=== PATIENT | female | born 1970 | race Caucasian/White ===

== ENCOUNTER → 2016-06-29 | Outpatient (CLI) | payer OTHER ==
[~2016-06-29] MED LIST: MTR600X PO; MULT-506 PO; OXYC-57 PO
--- NOTE | 2016-06-29 14:07 | MAMMOGRAPHY REPORT ---
BILATERAL DIGITAL DIAGNOSTIC MAMMOGRAM TOMOSYNTHESIS WITH CAD AND TARGETED BILATERAL ULTRASOUND: 06/06 CLINICAL HISTORY: The patient reports a palpable lump in the left breast which has had for many year s and is unchanged. She also had an episode of skin erythema and pain around her right nipple appro ximately 2 weeks ago; she was placed on antibiotics and the symptoms have resolved. She reports eitan t her clinician felt possible lumps in the region of the redness and pain at the time of her symptom s. TECHNIQUE: Breast tomosynthesis in addition to standard 2D mammography was performed. Current study was also evaluated with a Computer Aided Detection (CAD) system. Bilateral CC and MLO 2-D and vinay synthesis images were obtained. COMPARISON: Comparison is made to exam dated: 08/12/2014 mammogram - [facility]. BREAST COMPOSITION: The tissue of both breasts is heterogeneously dense, which may obscure small ma sses. FINDINGS: A triangle marker weller the site of the palpable lump in the left upper outer quadrant. T here are no suspicious masses, calcifications, or areas of architectural distortion seen mammographi annabelle. There has been no significant interval change compared to prior exams. Two morphologically n ormal intramammary lymph nodes in the right upper outer quadrant are stable. Targeted ultrasound was performed of the area of the palpable lump pointed out by the patient,in the left breast at approximately 2:00, 6 cm from the nipple. Sonographically normal tissue is seen in this region, without evidence of a mass or other suspicious sonographic abnormality. Targeted ultrasound was also performed of the right subareolar and periareolar breast, in the region of prior skin erythema and pain. No suspicious masses or other suspicious sonographic abnormalitie s are evident. A few incidentally noted small oval circumscribed anechoic masses are noted, consist ent with simple cysts, including a 4 mm cyst in the right superior subareolar breast and a 4 mm cyst in the right inferior subareolar breast. IMPRESSION: ACR BI-RADS CATEGORY 2: BENIGN, TARGETED ULTRASOUND ACR BI-RADS CATEGORY 2: BENIGN No suspicious mammographic or sonographic abnormality at the site of the unchanged palpable left indra ast lump and in the right subareolar/periareolar region at the site of prior erythema and pain which has currently resolved. There is no mammographic or targeted sonographic evidence of malignancy. Recommend clinical follow-up for bilateral breast symptoms; the patient was advised to return to her doctor if the erythema/pain returns. Also recommend routine bilateral screening mammograms in one year. The patient has been verbally notified of the results. Approximately 10% of breast cancers are not detected with mammography. A negative mammographic repor t should not delay biopsy if a clinically suggestive mass is present. Lanette Marvin M.D. ah/:06/29/2016 09:46:15 Student Outreach Coordinator: Bailey GARCIA(Hever)(M), [facility] letter sent: Normal 1/2 BI-RADS Code: ACR BI-RADS Category 2: Benign Ultrasound BI-RADS: ACR BI-RADS Category 2: Benign
== END | disposition home or self-care (01) ==
LOC: C.MAMM 09:03
PROVIDERS: ATTEND Obstetrics & Gynecology
DX: N63 Unspecified lump in breast (principal); N64.89 Other specified disorders of breast

== ENCOUNTER 2020-03-26 09:01 | Inpatient (IN) ==
--- NOTE | 2020-03-26 09:28 | Emergency Department Note ---
History of Present Illness General Chief complaint: GI Assessment Stated complaint: BLOOD IN STOOL Time Seen by Provider: 03/26/20 09:08 History of Present Illness This is a 49-year-old female that presents to the emergency department via private vehicle with complaints "blood in stool". The patient notes 2 days ago she began with purpleish/dark red blood per rectum. She then notes that she was seen yesterday at [facility] and was diagnosed with what she believes to be diverticulitis. The patient denies any abdominal pain. No fevers or chills. She notes that today there is a worsening of quantity of bright red blood per rectum and was concerned now noting that she feels dizzy and nauseate d. She denies any anticoagulant use, aspirin or NSAID use. No trauma or injury. She notes a history of hemorrhoids which were removed surgically previously but this does not feel any thing like that. She believes that this is coming from internally. No vaginal bleeding. She denies any hemoptysis. She did place a scopolamine patch behind the left ear earlier today to help with her dizziness. No history of GI bleeding. She notes that she has never had a colonoscopy before and is scheduled for one in about a month from now. Home Medications Medication Instructions Recorded Confirmed Type Lactobacillus reuteri [Probiotica] 1 cell PO DAILY 03/26/20 03/26/20 History docusate sodium [Stool Softener] 100 mg PO DAILY 03/26/20 03/26/20 History meloxicam 15 mg PO DAILY 03/26/20 03/26/20 History metformin 1,000 mg PO BID 03/26/20 03/26/20 History Allergies Allergy/AdvReac Type Severity Reaction Status Date / Time meperidine Allergy Mild A PAIN MED Verified 03/26/20 10:48 STARTS WITH A "D", NOT DEMEROL OR DARVOCET--KNEE hydromorphone Allergy Unknown A PAIN MED Verified 03/26/20 10:48 THAT STARTS WITH "D", NOT DEMEROL OR DARVOCET DETERGENTS Allergy Unknown RASH TO Uncoded 03/26/20 10:48 IVORY SOAP WOOL Allergy Unknown RASH Uncoded 03/26/20 10:48 Past Med/Surg History Medical History Abnormal uterine bleeding Abnormal uterine bleeding Anemia (06/13/13) Menometrorrhagia (06/13/13) Ovarian cyst (06/13/13) Pelvic mass Pelvic mass in female Strep pharyngitis Strep pharyngitis Type 2 diabetes mellitus Surgical History History of cervical spinal surgery History of hemorrhoidectomy Hx of cholecystectomy Family History (Updated 03/26/20 @ 12:40 by Jose Steele PA-C) Mother Rheumatoid arthritis Social History Smoking Status: Smoker, status unknown Cigarettes Per Day: 1 Pack every 2-3 days; Smoking End Date: 2 days ago; Second Hand Exposure: Yes; Do You Dip or Chew Tobacco: No; Tobacco Cessation Education Requested by Patient: No Hx Alcohol Use: No Hx Substance Use: No Preferred Language: Vietnamese Communication Ability: Effective Watch Dial Maker Required: No Beliefs That Will Affect Care: None Current Living Situation: Spouse and Other Current Living Situation Comment: 2 daughters Other Information That Helps Us Care for You: No Feels Safe at Home: Yes Safety Concerns: Feels Safe At This Time Assistive Devices: Brace/Splint/Immobilizer, Denture - Upper and Glasses Assistive Devices Comment: brace for ankle, not here. uses cane "occasionally" Review of Systems A total of 10 systems reviewed and were otherwise negative Physical Exam Vital Signs Vital Signs - 24 hr 03/26/20 09:04 03/26/20 11:56 03/26/20 13:45 Temperature 36.3 C L Temperature Source Temporal Artery Scan Pulse Rate 99 H Pulse Rate [Left] 89 92 H Pulse Rhythm [Left] Regular Regular Pulse Strength [Left] Normal Normal Respiratory Rate 22 18 18 Respiratory Effort / Characteristics Non-Labored Non-Labored Spontaneous Non-Labored Spontaneous Respiratory Depth Normal Normal Normal Respiratory Pattern Regular Regular Blood Pressure 108/73 Blood Pressure [Left Arm] 111/65 97/75 L Blood Pressure Mean 84 Blood Pressure Mean [Left Arm] 80 82 Blood Pressure Position Sitting Blood Pressure Position [Left Arm] Lying Lying Pulse Oximetry 100 96 98 Oxygen Delivery Method Room Air Room Air Room Air Sepsis Recent Fever Within 48 Hours No Sepsis New/Unexplained Change in Mental Status No Sepsis Action Taken by Nursing No Action Required VITAL SIGNS - Vital signs and nursing notes were reviewed. Stable and afebrile. GENERAL -49-year-old female appearing her stated age who is in no acute distress. Communicates well with provider and answers questions appropriately. SKIN - Without rashes. Perhaps a bit pale in appearance. Scopolamine patch behind the left ear. HEAD - NC/AT. EYES - PERRL with EOMI bilaterally. Sclera anicteric. EARS - No deformities of external structures noted on gross examination bilaterally. NOSE - Midline and without cyanosis. No epistaxis or purulent drainage noted. MOUTH/OROPHARYNX - Without perioral cyanosis. NECK - Neck with FROM.No nuchal rigidity. LUNGS - Chest wall symmetric without accessory muscle use, intercostals retractions, or central cyanosis. Normal vesicular breath sounds CTA B/L. No wheezes, rales, or rhonchi appreciated. CARDIAC - RRR with S1/S2. No murmur, rubs, or gallops appreciated. ABDOMEN - Abdominal contour normal without pulsations or visible masses. BS normoactive all four quadrants. No tenderness, palpable masses, hepatosplenomegaly, or ascites noted. EXTREMITIES - No clubbing or peripheral cyanosis. +5/5 strength noted in UE/LE bilaterally. NEUROLOGIC - Cranial nerves II through XII grossly intact. Sensory intact to light touch throughout. PSYCH - A&Ox3 and cooperates fully with examiner. Pt is very pleasant and interacts well with examiner. RECTAL: With female wrapping checker present a visual rectal examination was performed and there was dried blood noted surrounding the rectal region with small hemorrhoids without active bleeding. Course Administered Medications Discontinued Medications Sodium Chloride (Nss 1000ml) 1,000 mls @ 999 mls/hr IV .Q1H1M [facility] Stop: 03/26/20 13:00 Last Infusion: 03/26/20 16:11 Dose: 0 mls/hr Documented by: [id number] Admin: 03/26/20 15:18 Dose: 999 mls/hr Documented by: [id number] Ioversol (Ioversol 100ml) 94 ml IV ONCE ONE Stop: 03/26/20 11:18 Last Admin: 03/26/20 11:17 Dose: 94 ml Documented by: [id number] Critical Care Time Total Critical Care Time: 37 I have personally spent about 37 minutes of critical care time in the direct management of this patient. Patient presents to us today with symptomatic acute blood loss anemia noting rectal bleeding requiring blood transfusion. This critical care time includes bedside care, interpretation of diagnostic studies, and testing, discussion with consultants, patient, and family members, and other required patient management activities. These 37 minutes is in excess of all separately billable procedures. Medical Decision Making Laboratory Data Result diagrams: 03/26/20 09:45 03/26/20 09:45 Lab Results 03/26/20 03/26/20 03/26/20 Range/Units 09:45 09:45 09:45 WBC 11.51 H (4.8-10.8) K/uL RBC 2.68 L (4.2-5.4) M/uL Hgb 8.1 L (12.0-16.0) g/dL Hct 24.6 L (37-47) % MCV 91.8 (80-100) fL MCH 30.2 (25-34) pg MCHC 32.9 (32-36) g/dL RDW Std Deviation 43.3 (36.4-46.3) fL RDW Coeff of Moshe 13.0 (11.5-14.5) % Plt Count 356 (130-400) K/uL MPV 8.9 (7.4-10.4) fL Immature Gran % (Auto) 0.2 % Neut % (Auto) 83.7 % Lymph % (Auto) 12.6 % Barry % (Auto) 3.0 % Eos % (Auto) 0.2 % Baso % (Auto) 0.3 % Neut # (Auto) 9.65 H (1.4-6.5) K/uL Lymph # (Auto) 1.45 (1.2-3.4) K/uL Barry # (Auto) 0.34 (0.11-0.59) K/uL Eos # (Auto) 0.02 (0-0.5) K/uL Baso # (Auto) 0.03 (0-0.2) K/uL Immature Gran # (Auto) 0.02 (0.00-0.02) K/uL ESR (0-21) mm/hr PT (9.0-12.0) Seconds INR (0.9-1.1) APTT (21.0-31.0) Seconds PTT Ratio Sodium 142 (136-145) mmol/L Potassium 4.3 (3.5-5.1) mmol/L Chloride 112 H (98-107) mmol/L Carbon Dioxide 23 (21-32) mmol/L Anion Gap 7.0 (3-11) BUN 29 H (7-18) mg/dl Creatinine 0.89 (0.6-1.2) mg/dl Est Cr Clr Drug Dosing 74.3 ml/min Est GFR ( Amer) 87.0 Est GFR (Non-Af Amer) 75.0 BUN/Creatinine Ratio 33.0 H (10-20) Glucose 142 H (70-99) mg/dl Lactate (0.4-2.0) mmol/L Calcium 8.5 (8.5-10.1) mg/dl Magnesium 1.9 (1.8-2.4) mg/dl Total Bilirubin 0.3 (0.2-1) mg/dl AST 8 L (15-37) U/L ALT 16 (12-78) U/L Alkaline Phosphatase 80 (45-117) U/L Troponin I (0-0.045) ng/ml C-Reactive Protein (0-0.29) mg/dl Total Protein 6.1 L (6.4-8.2) gm/dl Albumin 3.1 L (3.4-5.0) gm/dl Globulin 3.0 (2.5-4.0) gm/dl Albumin/Globulin Ratio 1.0 (0.9-2) COVID-19 Eval Order SARS-CoV-2, RNA, NAAT (NEGATIVE) Blood Type O Positive Antibody Screen NEGATIVE Crossmatch See Detail 03/26/20 03/26/20 03/26/20 Range/Units 09:45 09:45 12:31 WBC (4.8-10.8) K/uL RBC (4.2-5.4) M/uL Hgb (12.0-16.0) g/dL Hct (37-47) % MCV (80-100) fL MCH (25-34) pg MCHC (32-36) g/dL RDW Std Deviation (36.4-46.3) fL RDW Coeff of Moshe (11.5-14.5) % Plt Count (130-400) K/uL MPV (7.4-10.4) fL Immature Gran % (Auto) % Neut % (Auto) % Lymph % (Auto) % Barry % (Auto) % Eos % (Auto) % Baso % (Auto) % Neut # (Auto) (1.4-6.5) K/uL Lymph # (Auto) (1.2-3.4) K/uL Barry # (Auto) (0.11-0.59) K/uL Eos # (Auto) (0-0.5) K/uL Baso # (Auto) (0-0.2) K/uL Immature Gran # (Auto) (0.00-0.02) K/uL ESR 8 (0-21) mm/hr PT 10.3 (9.0-12.0) Seconds INR 1.0 (0.9-1.1) APTT 21.0 (21.0-31.0) Seconds PTT Ratio 0.8 Sodium (136-145) mmol/L Potassium (3.5-5.1) mmol/L Chloride (98-107) mmol/L Carbon Dioxide (21-32) mmol/L Anion Gap (3-11) BUN (7-18) mg/dl Creatinine (0.6-1.2) mg/dl Est Cr Clr Drug Dosing ml/min Est GFR ( Amer) Est GFR (Non-Af Amer) BUN/Creatinine Ratio (10-20) Glucose (70-99) mg/dl Lactate (0.4-2.0) mmol/L Calcium (8.5-10.1) mg/dl Magnesium (1.8-2.4) mg/dl Total Bilirubin (0.2-1) mg/dl AST (15-37) U/L ALT (12-78) U/L Alkaline Phosphatase (45-117) U/L Troponin I < 0.015 (0-0.045) ng/ml C-Reactive Protein (0-0.29) mg/dl Total Protein (6.4-8.2) gm/dl Albumin (3.4-5.0) gm/dl Globulin (2.5-4.0) gm/dl Albumin/Globulin Ratio (0.9-2) COVID-19 Eval Order SARS-CoV-2, RNA, NAAT (NEGATIVE) Blood Type Antibody Screen Crossmatch 03/26/20 03/26/20 03/26/20 Range/Units 12:31 12:34 13:30 WBC (4.8-10.8) K/uL RBC (4.2-5.4) M/uL Hgb (12.0-16.0) g/dL Hct (37-47) % MCV (80-100) fL MCH (25-34) pg MCHC (32-36) g/dL RDW Std Deviation (36.4-46.3) fL RDW Coeff of Moshe (11.5-14.5) % Plt Count (130-400) K/uL MPV (7.4-10.4) fL Immature Gran % (Auto) % Neut % (Auto) % Lymph % (Auto) % Barry % (Auto) % Eos % (Auto) % Baso % (Auto) % Neut # (Auto) (1.4-6.5) K/uL Lymph # (Auto) (1.2-3.4) K/uL Barry # (Auto) (0.11-0.59) K/uL Eos # (Auto) (0-0.5) K/uL Baso # (Auto) (0-0.2) K/uL Immature Gran # (Auto) (0.00-0.02) K/uL ESR (0-21) mm/hr PT (9.0-12.0) Seconds INR (0.9-1.1) APTT (21.0-31.0) Seconds PTT Ratio Sodium (136-145) mmol/L Potassium (3.5-5.1) mmol/L Chloride (98-107) mmol/L Carbon Dioxide (21-32) mmol/L Anion Gap (3-11) BUN (7-18) mg/dl Creatinine (0.6-1.2) mg/dl Est Cr Clr Drug Dosing ml/min Est GFR ( Amer) Est GFR (Non-Af Amer) BUN/Creatinine Ratio (10-20) Glucose (70-99) mg/dl Lactate 1.4 (0.4-2.0) mmol/L Calcium (8.5-10.1) mg/dl Magnesium (1.8-2.4) mg/dl Total Bilirubin (0.2-1) mg/dl AST (15-37) U/L ALT (12-78) U/L Alkaline Phosphatase (45-117) U/L Troponin I (0-0.045) ng/ml C-Reactive Protein 0.62 H (0-0.29) mg/dl Total Protein (6.4-8.2) gm/dl Albumin (3.4-5.0) gm/dl Globulin (2.5-4.0) gm/dl Albumin/Globulin Ratio (0.9-2) COVID-19 Eval [id number] SARS-CoV-2, RNA, NAAT (NEGATIVE) Blood Type Antibody Screen Crossmatch 03/26/20 Range/Units 13:30 WBC (4.8-10.8) K/uL RBC (4.2-5.4) M/uL Hgb (12.0-16.0) g/dL Hct (37-47) % MCV (80-100) fL MCH (25-34) pg MCHC (32-36) g/dL RDW Std Deviation (36.4-46.3) fL RDW Coeff of Moshe (11.5-14.5) % Plt Count (130-400) K/uL MPV (7.4-10.4) fL Immature Gran % (Auto) % Neut % (Auto) % Lymph % (Auto) % Barry % (Auto) % Eos % (Auto) % Baso % (Auto) % Neut # (Auto) (1.4-6.5) K/uL Lymph # (Auto) (1.2-3.4) K/uL Barry # (Auto) (0.11-0.59) K/uL Eos # (Auto) (0-0.5) K/uL Baso # (Auto) (0-0.2) K/uL Immature Gran # (Auto) (0.00-0.02) K/uL ESR (0-21) mm/hr PT (9.0-12.0) Seconds INR (0.9-1.1) APTT (21.0-31.0) Seconds PTT Ratio Sodium (136-145) mmol/L Potassium (3.5-5.1) mmol/L Chloride (98-107) mmol/L Carbon Dioxide (21-32) mmol/L Anion Gap (3-11) BUN (7-18) mg/dl Creatinine (0.6-1.2) mg/dl Est Cr Clr Drug Dosing ml/min Est GFR ( Amer) Est GFR (Non-Af Amer) BUN/Creatinine Ratio (10-20) Glucose (70-99) mg/dl Lactate (0.4-2.0) mmol/L Calcium (8.5-10.1) mg/dl Magnesium (1.8-2.4) mg/dl Total Bilirubin (0.2-1) mg/dl AST (15-37) U/L ALT (12-78) U/L Alkaline Phosphatase (45-117) U/L Troponin I (0-0.045) ng/ml C-Reactive Protein (0-0.29) mg/dl Total Protein (6.4-8.2) gm/dl Albumin (3.4-5.0) gm/dl Globulin (2.5-4.0) gm/dl Albumin/Globulin Ratio (0.9-2) COVID-19 Eval Order SARS-CoV-2, RNA, NAAT NEGATIVE (NEGATIVE) Blood Type Antibody Screen Crossmatch Imaging Data Radiologist's Impression: ABDOMEN AND PELVIS CT WITH IV CONTRAST CT DOSE: 493.46 mGy.cm HISTORY: Bright red blood per rectum. TECHNIQUE: Multiaxial CT images of the abdomen and pelvis were performed following the use of intravenous contrast. A dose lowering technique was utilized adhering to the principles of ALARA. COMPARISON STUDY: None. FINDINGS: Faint small groundglass densities within the left lower lobe medially on image 43. No pneumoperitoneum. No pneumatosis. Moderate right and mild left hip osteoarthritis. Mild hepatic steatosis. Cholecystectomy. The pancreas, spleen, adrenal glands, and left kidney are unremarkable. There are few subcentimeter hypodense lesions within the right kidney which are technically too small to characterize but statistically represent cysts. No hydronephrosis. A punctate calcification within the anterior bladder wall. These are of doubtful clinical significance. No retroperitoneal lymphadenopathy. Normal caliber abdominal aorta. Prior hysterectomy. Colonic diverticulosis. No evidence for acute diverticulitis. Normal appendix. Subtle infiltration throughout the majority of the colon with minimal bowel wall thickening. Findings likely represent a low-grade pancolitis. This can be seen in the setting of an infectious or inflammatory process. IMPRESSION: 1. Low-grade pancolitis which can be seen in the setting of an infectious or inflammatory process. 2. Colonic diverticulosis. No evidence for acute diverticular this. 3. Hepatic steatosis. 4. Prior cholecystectomy. 5. Faint small groundglass densities within the left lower lobe medially. This favors a mild inflammatory/infectious process. ACT 112: Negative or not required by law. Electronically signed by: Johnny Preston M.D. 03/26/2020 11:35 AM MDM Narrative Patient was seen and evaluated as above in room C02. Review was performed of n ursing notes and vital signs. I did review pertinent previous visits and patient history. After obtaining a thorough history and physical examination the above work up was performed. She presents to us today with bright red blood per rectum. She is nontoxic on exam but does appear pale. Examination does confirm blood in the rectal region. Options of care were discussed with the patient. IV access established. Labs were drawn. There is mild leukocytosis 11.51 with hemoglobin at 8.1. This is suspected to be acute. BUN elevated at 29 also suspected to be secondary to GI bleed. Glucose high at 142. Troponin negative. Covid testing negative. With the patient's hemoglobin being this low in the setting of acute GI bleed and now being symptomatic from the suspected anemia it is felt that blood transfusion is warranted. Consent form signed by the attending physician. 2 units of packed red blood cells were ordered. These were ordered to be transfused. I did discuss the presentation with the hospitalist as well as GI specialist, SHARLA Banks. We discussed the case. Please refer to further documentation regarding the patient's stay. Patient amenable to plan of care. While in the department, I personally reevaluated the patient several times and each time the patient was found to be resting comfortably. The patient was educated upon management, educated upon todays findings/results, educated upon importance of hospitalization and was admitted without issue. Case was discussed with the attending physician. Continuous cardiac monitoring was ordered secondary to the patient's chief complaint with suspected acute blood loss anemia. GCS: 15 In the evaluation and treatment of this patient the following differential diagnoses were entertained: [] Impression & Plan Pancolitis, GI bleeding Discharge Plan Visit Data Chief Complaint: GI Assessment Stated Complaint: BLOOD IN STOOL ED Provider: Mishock,Levy ED Midlevel Provider: Carlos Ontiveros Discharge Problem: Pancolitis, GI bleeding Patient Disposition: Admitted As Inpatient Condition: Good Discharge Instructions Interventions: ED Discharge Assessment Last Done: 03/26/20 15:58
[2020-03-26 09:59] LABS: Basophils # (auto) 0.03 K/uL (0-0.2); Basophils % (auto) 0.3 %; Eosinophils # (auto) 0.02 K/uL (0-0.5); Eosinophils % (auto) 0.2 %; Hematocrit (blood only) 24.6 % (37-47); Hemoglobin 8.1 g/dL (12.0-16.0); Immature Granulocytes # (auto) 0.02 K/uL (0.00-0.02); Immature Granulocytes % (auto) 0.2 %; Lymphocytes # (auto) 1.45 K/uL (1.2-3.4); Lymphocytes % (auto) 12.6 %; Mean Corpuscular Hemoglobin 30.2 pg (25-34); Mean Corpuscular Hgb Conc 32.9 g/dL (32-36); Mean Corpuscular Volume 91.8 fL (80-100); Mean Platelet Volume 8.9 fL (7.4-10.4); Monocytes # (auto) 0.34 K/uL (0.11-0.59); Neutrophils # (auto) 9.65 K/uL (1.4-6.5); Neutrophils % (auto) 83.7 %; Platelet Count 356 K/uL (130-400); RDW Standard Deviation 43.3 fL (36.4-46.3); Red Blood Count 2.68 M/uL (4.2-5.4); White Blood Count 11.51 K/uL (4.8-10.8)
[2020-03-26] MEDS ORDERED: SODIUM CHLORIDE 0.9% 250 ML IV PRN (10:22)
[2020-03-26 10:26] LABS: Partial Thromboplastin Ratio 0.8; Prothrombin Time 10.3 Seconds (9.0-12.0)
[2020-03-26 10:28] LABS: Albumin Level 3.1 gm/dl (3.4-5.0); Calcium 8.5 mg/dl (8.5-10.1); Creatinine Clr Calc Pharmacy 74.3 ml/min; Magnesium 1.9 mg/dl (1.8-2.4); Potassium 4.3 mmol/L (3.5-5.1)
[2020-03-26 10:31] LABS: Bilirubin,Total 0.3 mg/dl (0.2-1); Total Protein 6.1 gm/dl (6.4-8.2)
[2020-03-26] MEDS ORDERED: OPTIRAY 320 100ml IV ONE (11:17)
--- NOTE | 2020-03-26 11:37 | CT Scan Report ---
ABDOMEN AND PELVIS CT WITH IV CONTRAST CT DOSE: 493.46 mGy.cm HISTORY: Bright red blood per rectum. TECHNIQUE: Multiaxial CT images of the abdomen and pelvis were performed following the use of intrave nous contrast. A dose lowering technique was utilized adhering to the principles of ALARA. COMPARISON STUDY: None. FINDINGS: Faint small groundglass densities within the left lower lobe medially on image 43. No pneum operitoneum. No pneumatosis. Moderate right and mild left hip osteoarthritis. Mild hepatic steatosis. Cholecystectomy. The pancreas, spleen, adrenal glands, and left kidney are unremarkable. There are f ew subcentimeter hypodense lesions within the right kidney which are technically too small to charact erize but statistically represent cysts. No hydronephrosis. A punctate calcification within the anter ior bladder wall. These are of doubtful clinical significance. No retroperitoneal lymphadenopathy. No rmal caliber abdominal aorta. Prior hysterectomy. Colonic diverticulosis. No evidence for acute diver ticulitis. Normal appendix. Subtle infiltration throughout the majority of the colon with minimal bow el wall thickening. Findings likely represent a low-grade pancolitis. This can be seen in the setting of an infectious or inflammatory process. IMPRESSION: 1. Low-grade pancolitis which can be seen in the setting of an infectious or inflammatory process. 2. Colonic diverticulosis. No evidence for acute diverticular this. 3. Hepatic steatosis. 4. Prior cholecystectomy. 5. Faint small groundglass densities within the left lower lobe medially. This favors a mild inflamma tory/infectious process. ACT 112: Negative or not required by law. Electronically signed by: Johnny Preston M.D. 03/26/2020 11:35 AM
--- NOTE | 2020-03-26 11:57 | History & Physical Report ---
Date of Service March 26, 2020 Assessment & Plan (1) GI bleeding: Ms. Farfan is a 49 year old female with a history of Type 2 Diabetes Mellitus, Diverticulosis Coli, s/p Hemorrhoidectomy, and Gall Bladder Disease s/p Cholecystectomy who presents to [facility] ER with a GI Bleed, Acute Blood Loss Anemia, and CT Scan is suspicious for a Fang-Colitis. Additionally, she has an arthritis which flares up periodically. She thinks that she may have been diagnosed with rheumatoid arthritis -- and this could certainly be related to her current GI bleed. The patient started to have purple to dark red blood from her rectum about 3 days ago. Today she has noticed a greater quantity of bright red blood per rectum, and she became more concerned when she began to feel lightheaded and nauseated today. Her appetite up until today has been normal, she just did not feel like eating much this morning because she was nauseated. The patient denies any focal abdominal pain, fevers, or chills, or any diarrhea -- although her stools have not been fully formed ever since starting on Metformin but that's not new. She denies any vomiting or hematemesis. Patient denies any recent foreign travel, or eating any questionable foods. She denies any prior history of rectal bleeding with the exception of her external hemorrhoids which were surgically removed. She has not had any vaginal bleeding or any changes in her urinary patterns. She does not take blood thinners, but she does take melox icam occasionally. She recently took it for about a week straight. She denies any mid epigastric discomfort or irritation from taking this NSAID. She offers no other complaints. She denies any exertional chest pain, heaviness, tightness, pressure, or discomfort. She denies any shortness of breath rest, orthopnea, or PND. She denies any palpitations, syncope, or loss of consciousness. She has not had any symptoms concerning for coronavirus. -- Admit to Med-Surg floor. -- Transfuse PRBC's as ordered in the ER. -- Consult [facility]. -- NPO for now. -- Serial H&H levels. -- Continue IVF's for now. -- Protonix 40 mg b.i.d.. (2) Pancolitis: -- CT Scan was suggestive of a Pancolitis. -- This could be an inflammatory process related to her inflammatory arthritis. -- Doubt that this is an infectious process (no fever, chills, diarrhea, abdominal cramping, etc). -- Check stools for enteric pathogens, fecal culture. -- Check C. diff toxin assay. -- Check ESR and CRP. (3) Chronic arthralgias of knees and hips: -- Patient thinks that she was diagnosed with Rheumatoid Arthritis. -- Family history of RA in her mother. (4) Type 2 diabetes mellitus: -- Hold Metformin. -- BSG checks AC and HS. -- Glycemic Pharmacy consult. History of Present Illness Chief Complaint: -- Rectal Bleeding. -- Anemia, Hgb 8.1 g/dl. Primary Care Provider: NO PCP Ms. Farfan is a 49 year old female with a history of Type 2 Diabetes Mellitus, Diverticulosis Coli, s/p Hemorrhoidectomy, and Gall Bladder Disease s/p Cholecystectomy who presents to [facility] ER complaining of "blood in stool". The patient states that 3 days ago she started to have purple to dark red blood from her rectum. Patient states that today there is a greater quantity of bright red blood per rectum. She became more concerned when she began to feel dizzy/lightheaded and nauseated today. Her appetite up until today has been n ormal, she just did not feel like eating much this morning because she was nauseated. She was apparently seen at [facility] on 03/25/2020 and was diagnosed with what she believes was diverticulitis. The patient however denies any focal abdominal pain, fevers, or chills, or any diarrhea -- although her stools have not been fully formed ever since starting on Metformin but that's not new. She denies any vomiting or hematemesis. Patient denies any recent foreign travel, or eating any questionable foods. She denies any prior history of rectal bleeding with the exception of her external hemorrhoids which were surgically removed. She has not had any vaginal bleeding or any changes in her urinary patterns. She does not take blood thinners, but she does take meloxicam occasionally. She recently took it for about a week straight. She denies any mid epigastric discomfort or irritation from taking this NSAID. She offers no other complaints. She denies any exertional chest pain, heaviness, tightness, pressure, or discomfort. She denies any shortness of breath rest, orthopnea, or PND. She denies any palpitations, syncope, or loss of consciousness. Patient has never had a colonoscopy although she is scheduled for a screening colonoscopy in approximately 1 month. Interestingly, patient has been evaluated by Rheumatology in the past. She has an arthritis which flares up periodically. She thinks that she may have been diagnosed with rheumatoid arthritis. She has a family history of rheumatoid arthritis in her mother. Allergies Allergy/AdvReac Type Severity Reaction Status Date / Time meperidine Allergy Mild A PAIN MED Verified 03/26/20 10:48 STARTS WITH A "D", NOT DEMEROL OR DARVOCET--KNEE hydromorphone Allergy Unknown A PAIN MED Verified 03/26/20 10:48 THAT STARTS WITH "D", NOT DEMEROL OR DARVOCET DETERGENTS Allergy Unknown RASH TO Uncoded 03/26/20 10:48 IVORY SOAP WOOL Allergy Unknown RASH Uncoded 03/26/20 10:48 Home Medications Medication Instructions Recorded Confirmed Type Lactobacillus reuteri 1 cell PO DAILY 03/26/20 03/26/20 History meloxicam 15 mg PO DAILY 03/26/20 03/26/20 History metformin 1,000 mg PO BID 03/26/20 03/26/20 History docusate sodium [Stool Softener] 200 mg PO DAILY #60 cap 03/29/20 03/26/20 Rx psyllium husk [Fiber-Caps 0.52 g PO DAILY #30 cap 03/29/20 Rx (psyllium husk)] Past Med/Surg History Medical History Abnormal uterine bleeding Abnormal uterine bleeding Anemia (06/13/13) Menometrorrhagia (06/13/13) Ovarian cyst (06/13/13) Pelvic mass Pelvic mass in female Strep pharyngitis Strep pharyngitis Type 2 diabetes mellitus Surgical History History of cervical spinal surgery History of hemorrhoidectomy Hx of cholecystectomy Family History Mother Rheumatoid arthritis Social History Smoking Status: Smoker, status unknown Cigarettes Per Day: 1 Pack every 2-3 days; Second Hand Exposure: Yes; Hx Alcohol Use: No Hx Substance Use: No Preferred Language: [place]an Communication Ability: Effective Carpenter Helper Required: No Beliefs That Will Affect Care: None Current Living Situation: Spouse and Other Current Living Situation Comment: 2 daughters Feels Safe at Home: Yes Assistive Devices: None Review of Systems Review of Systems: All systems reviewed & are unremarkable except as noted in Subjective Physical Exam Physical Exam: GENERAL: Patient is pale appearing but in no acute distress. HEENT: Head is atraumatic, normocephalic. EOM's intact. Conjunctiva are pale. Facies symmetric. No perioral cyanosis. NECK: No JVD. Carotid upstrokes are + 2 bilaterally. No bruits are noted. Well healed surgical scar above the suprasternal notch. CHEST/LUNGS: Clear to auscultation throughout all lung feliz. No wheezes, rales, or crackles. CVS: S1 and S2 are regular obvious without murmurs, gallops, or rubs. PMI is nonpalpable. No lifts, heaves, or thrills. No abdominal aortic or renal bruits. ABDOMINAL EXAM: Bowel sounds are present. No masses, organomegaly, or tenderness. Stool heme positive per ER provider. EXTREMITIES: No clubbing or cyanosis. No edema. Intact posterior tibial and radial pulses bilaterally. Left distal 3rd finger is absent at the DIP joint. NEUROLOGIC EXAM: Patient is awake, alert, and oriented. Pleasant and cooperative. Answers questions appropriately. Speech is clear. Normal movement in all 4 extremities. Results & Data Results & Data ([facility]) Vital Signs (Past 12 Hours) Vital Signs Temp Pulse Resp BP Pulse Ox 03/26/20 09:04 36.3 C L 99 H 22 108/73 100 Laboratory Results Laboratory Results - last 24 hr 03/26/20 03/26/20 03/26/20 09:45 09:45 09:45 WBC 11.51 H RBC 2.68 L Hgb 8.1 L Hct 24.6 L MCV 91.8 MCH 30.2 MCHC 32.9 RDW Std Deviation 43.3 RDW Coeff of Moshe 13.0 Plt Count 356 MPV 8.9 Immature Gran % (Auto) 0.2 Neut % (Auto) 83.7 Lymph % (Auto) 12.6 Summers % (Auto) 3.0 Eos % (Auto) 0.2 Baso % (Auto) 0.3 Neut # (Auto) 9.65 H Lymph # (Auto) 1.45 Summers # (Auto) 0.34 Eos # (Auto) 0.02 Baso # (Auto) 0.03 Immature Gran # (Auto) 0.02 ESR PT INR APTT PTT Ratio Sodium 142 Potassium 4.3 Chloride 112 H Carbon Dioxide 23 Anion Gap 7.0 BUN 29 H Creatinine 0.89 Est Cr Clr Drug Dosing 74.3 Est GFR ( Amer) 87.0 Est GFR (Non-Af Amer) 75.0 BUN/Creatinine Ratio 33.0 H Glucose 142 H Lactate Calcium 8.5 Magnesium 1.9 Total Bilirubin 0.3 AST 8 L ALT 16 Alkaline Phosphatase 80 Troponin I C-Reactive Protein Total Protein 6.1 L Albumin 3.1 L Globulin 3.0 Albumin/Globulin Ratio 1.0 Blood Type O Positive Antibody Screen NEGATIVE Crossmatch See Detail 03/26/20 03/26/20 03/26/20 09:45 09:45 12:31 WBC RBC Hgb Hct MCV MCH MCHC RDW Std Deviation RDW Coeff of Moshe Plt Count MPV Immature Gran % (Auto) Neut % (Auto) Lymph % (Auto) Summers % (Auto) Eos % (Auto) Baso % (Auto) Neut # (Auto) Lymph # (Auto) Summers # (Auto) Eos # (Auto) Baso # (Auto) Immature Gran # (Auto) ESR Pending PT 10.3 INR 1.0 APTT 21.0 PTT Ratio 0.8 Sodium Potassium Chloride Carbon Dioxide Anion Gap BUN Creatinine Est Cr Clr Drug Dosing Est GFR ( Amer) Est GFR (Non-Af Amer) BUN/Creatinine Ratio Glucose Lactate Calcium Magnesium Total Bilirubin AST ALT Alkaline Phosphatase Troponin I < 0.015 C-Reactive Protein Total Protein Albumin Globulin Albumin/Globulin Ratio Blood Type Antibody Screen Crossmatch 03/26/20 03/26/20 12:31 12:34 WBC RBC Hgb Hct MCV MCH MCHC RDW Std Deviation RDW Coeff of Moshe Plt Count MPV Immature Gran % (Auto) Neut % (Auto) Lymph % (Auto) Summers % (Auto) Eos % (Auto) Baso % (Auto) Neut # (Auto) Lymph # (Auto) Summers # (Auto) Eos # (Auto) Baso # (Auto) Immature Gran # (Auto) ESR PT INR APTT PTT Ratio Sodium Potassium Chloride Carbon Dioxide Anion Gap BUN Creatinine Est Cr Clr Drug Dosing Est GFR ( Amer) Est GFR (Non-Af Amer) BUN/Creatinine Ratio Glucose Lactate Pending Calcium Magnesium Total Bilirubin AST ALT Alkaline Phosphatase Troponin I C-Reactive Protein Pending Total Protein Albumin Globulin Albumin/Globulin Ratio Blood Type Antibody Screen Crossmatch Diagnostic Findings CT SCAN ABDOMEN/PELVIS 03/26/2020: Faint small ground-glass densities within the left lower lobe medially on image 43. No pneumoperitoneum. No pneumatosis. Moderate right and mild left hip osteoarthritis. Mild hepatic steatosis. Cholecystectomy. The pancreas, spleen, adrenal glands, and left kidney are unremarkable. There are few subcentimeter hy podense lesions within the right kidney which are technically too small to characterize but statistically represent cysts. No hydronephrosis. A punctate calcification within the anterior bladder wall. These are of doubtful clinical significance. No retroperitoneal lymphadenopathy. Normal caliber abdominal aorta. Prior hysterectomy. Colonic diverticulosis. No evidence for acute diverticulitis. Normal appendix. Subtle infiltration throughout the majority of the colon with minimal bowel wall thickening. Findings likely represent a low- grade pancolitis. This can be seen in the setting of an infectious or inflammatory process. IMPRESSION: 1. Low-grade pancolitis which can be seen in the setting of an infectious or inflammatory process. 2. Colonic diverticulosis. No evidence for acute diverticular this. 3. Hepatic steatosis. 4. Prior cholecystectomy. 5. Faint small ground-glass densities within the left lower lobe medially that favors a mild inflammatory/infectious process. Medications Administered Discontinued Medications Ioversol (Ioversol 100ml) 94 ml IV ONCE ONE Stop: 03/26/20 11:18 Last Admin: 03/26/20 11:17 Dose: 94 ml Documented by: [id number] Code Status & VTE Plan Code Status Full Code VTE Prophylaxis Plan VTE Prophylaxis will be ordered: Yes Reason for no VTE drug order: Contraindicated Supervising Physician Co-Signing Physician Notes I personally saw and examined the patient. I verified all mcnair points and agree with DARNELL Steele with the following exceptions and/or additions: 49 yo female admission for lower GI bleeding with Hgb 8.1. Low-grade pancolitis on CT. Concern for autoimmune pathology given ROS with unspecified inflammatory joint arthritis. O/E Chest CTAB, HS RRR, no murmurs, Abdo SNT, BS normal. A/P Lower GI bleed - 2 units packed RBCs, Repeat Hgb following this. Pancolitis - ESR/CRP added to labs, stool cultures, c. diff toxin, consult GI PG Care Time/CCT Total # of Minutes Spent Total Time Spent with Patient: Total time spent is greater than 50% in coordination of care (as documented) at patient's floor/unit and/or counseling patient:40 Coding Level of Care Code 17214 Initial Inpt Care Lvl 3 Diagnoses GI bleeding K92.2 Pancolitis K51.00 Chronic arthralgias of knees and hips M25.551; M25.552; M25.561; M25.562; G89.29 Type 2 diabetes mellitus E11.9 Time Spent (min) 60
[2020-03-26] MEDS ORDERED: SODIUM CHLORIDE 0.9% 1000ML 1,000 ML IV SCH (12:00)
--- NOTE | 2020-03-26 12:54 | Gastroenterology Progress Note ---
Date of Service March 26, 2020 Assessment & Plan (1) Rectal bleed: Painless rectal bleeding with pancolitis on CT scan. Differentials considered include an infectious colitis, diverticular bleed, new ulcerative colitis or Crohn's colitis, and hemorrhoidal bleeding. Doubt ischemic colitis. 1. Stools for C-diff, culture. 2. IV fluids, consider blood transfusion. 3. No evidence of UGI bleeding but would cover with PPI IV BID. 4. Keep NPO until rectal bleeding stops, then could have clear liquids po. 5. Cipro/flagyl x 7 days for coverage of colitis, prevention of translocation of bacteria. 6. Eventual colonoscopy. Timing of colonoscopy is dependent on pt's clinical course: on Sunday, vs. as OP. (An OP screening colonoscopy is already arranged for April 23). Present on Admission?: Yes Supervising Physician Co-Signing Physician Notes I saw and evaluated the patient in the emergency room. We were consulted for evaluation of hematochezia and anemia. The patient reports that she has had ongoing hematochezia the past few few days. Of note she was to have an outpatient colonoscopy performed in a few weeks time. She denies having nausea vomiting fevers or chills. There is no history of dark sticky stool. Physical examination No obvious distress No scleral icterus Mild epigastric tenderness Impression: Patient presents with hematochezia and inflammatory changes on her CT scan. It is possible that the patient has an underlying inflammatory disorder or perhaps more likely diverticular hemorrhage would recommend stool studies be performed to include C. difficile and a stool culture. Coverage with empiric antibiotics is probably reasonable in her case. Should the bleeding persist we could certainly plan to do a colonoscopy early next week or more urgently if needed. Subjective Ms. Ese Farfan is a 49 yr old female pt of Dr. Leon with a hx of arthritis presents to the ED today for painless rectal bleeding which began on Sunday. Blood was dark red an in the toilet bowl on Sun, dark red with clots and on the toilet paper and in the toilet bowl yesterday and is dark red again today. She reports moderate to large volume bleeding each day. Today, she presented to the ED because she had an episode of nausea/vomiting and felt weak and short of breath. GI is consulted for the rectal bleeding. WBC is 11, Hb is 8 (down from 10, one day prior at her PCP), Hct 24, INR 1.0 and pt is not on any antiplatelet or anticoagulants. She does take NSAIDs for arthritis but reports that she does not take them frequently or regularly. CT on arrival with reyes colitis. She does not recall eating any suspect foods, hasn't eaten out and no family members with IBD though her mother does have Rh arthritis. She does not recall any similar symptoms of previous rectal bleeding and has not had ongoing problems with abd pain, diarrhea or constipation. On yesterdays labs, she was not iron deficient and MCV was normal. She denies any recent excessive bruising and has had bleeding elsewhere. She is scheduled for an initial screening colonoscopy on 04/23/[address] Brizuela. She does not have GERD, upper abd pain and has never undergone EGD. Review of Systems Review of Systems: ROS: Gen: + weak and SOB today - not prior; no fevers, or weight loss Eyes: No eye redness, or pain, no recent vision changes Resp: [place] SOB today, not prior. No cough Cardio: No palpitations/irregular beats, no chest pain GI: See HPI: + rectal bleeding; No abdominal pain, + one episode of nausea/vomiting today, non since arrival. : Denies pain on urination Skin: No jaundice, itching or new rashes Physical Exam Constitutional: WD/WN, vitals as above Eyes: PERRL, conjunctivae normal, anicteric sclerae ENMT: external ear and nose normal, oropharynx normal Neck: trachea midline, no thyromegaly Respiratory: normal respiratory effort, lungs clear to auscultation Cardiovascular: RRR, no murmur, no edema Gastrointestinal (Abdomen): normal bowel sounds, soft, nontender, no hepatosplenomegaly Musculoskeletal: no cyanosis or clubbing, extremities motor strength 5/5 Skin: no rashes, warm and dry Neurologic: PERRL, EOMI, accommodation nl, no face palsy, no dysarthria Psychiatric: A+Ox3, euthymic affect Lymphatic: no cervical or axillary lymphadenopathy Results & Data ([facility]) Vital Signs (Past 12 Hours) Vital Signs Temp Pulse Pulse Resp BP BP Pulse Ox 03/26/20 11:56 89 18 111/65 96 03/26/20 09:04 36.3 C L 99 H 22 108/73 100 Laboratory Results WBC 11, Hb 8, Hct 24, platelets 356, INR 1.0, Na 142, K 4.3, BUN 29, Cr 0.[address] abd/pelvis with IV contrast 03/26/20 1. Low-grade pancolitis which can be seen in the setting of an infectious or inflammatory process. 2. Colonic diverticulosis. No evidence for acute diverticular this. 3. Hepatic steatosis. 4. Prior cholecystectomy. 5. Faint small ground glass densities within the left lower lobe medially. This favors a mild inflammatory/infectious process.
--- NOTE | 2020-03-26 12:59 | XRay Report ---
XR chest 1V portable CLINICAL HISTORY: Shortness of breath, dizziness COMPARISON STUDY: 01/31/2008 FINDINGS: The cardiac and mediastinal contours are normal. There is no evidence of focal pulmonary co nsolidation. There is no evidence of failure. No pleural effusions are visualized.[Postsurgical bella es are present within the cervical spine IMPRESSION: No active disease in the chest. ACT 112: Negative or not required by law. Electronically signed by: Adilson Lobo M.D. 03/26/2020 12:58 PM
[2020-03-26] MEDS ORDERED: ACETAMINOPHEN 325 MG TAB PO PRN (16:15)
[2020-03-26] MEDS ORDERED: MAGNESIUM HYDROXIDE SUSP 30 ML UDC PO PRN (16:15)
[2020-03-26] MEDS ORDERED: ZOLPIDEM TARTRATE 5 MG TAB PO PRN ×2 (16:15→18:16)
[2020-03-26] MEDS ORDERED: ONDANSETRON INJ 2 MG/ML 2 ML VIAL IV PRN (16:15)
[2020-03-26] MEDS ORDERED: ALUMINUM/MAGNESIUM SUSP 30 ML UDC PO PRN (16:15)
[2020-03-26] MEDS: CIPROFLOXACIN / D5W 400 MG/200 ML BAG IV SCH (19:40)
[2020-03-26] MEDS: metroNIDAZOLE 500 MG/100 ML BAG IV SCH (19:40)
[2020-03-26] MEDS: D5W AND 1/2NSS + 20MEQ KCL 20 MEQ/1,000 ML BAG IV SCH (21:55)
[2020-03-26] MEDS ORDERED: PHARMACY GLYCEMIC MGMT CONSULT PRN (22:51)
[2020-03-26] MEDS ORDERED: GLUCOSE 10 TABS/TUBE PO PRN (23:00)
[2020-03-26] MEDS ORDERED: CARBOHYDRATES FOR HYPOGLYCEMIA PO PRN (23:00)
[2020-03-26] MEDS ORDERED: DEXTROSE 50% 50 ML SYRINGE IV PRN (23:00)
[2020-03-26] MEDS ORDERED: GLUCOSE 40% GEL 15 GM TUBE PO PRN (23:00)
[2020-03-26] MEDS ORDERED: GLUCAGON FOR INJ 1 MG VIAL SQ PRN (23:00)
[2020-03-27] MEDS: INSULIN ASPART 100 UNITS/ML 3 ML PEN SC SCH ×5 (00:07→20:55)
[2020-03-27] MEDS: metroNIDAZOLE 500 MG/100 ML BAG IV SCH ×3 (02:52→20:14)
[2020-03-27] MEDS: D5W AND 1/2NSS + 20MEQ KCL 20 MEQ/1,000 ML BAG IV SCH ×2 (05:49→12:51)
[2020-03-27] MEDS: CIPROFLOXACIN / D5W 400 MG/200 ML BAG IV SCH ×2 (06:05→20:14)
[2020-03-27 06:37] LABS: Basophils # (auto) 0.03 K/uL (0-0.2); Basophils % (auto) 0.4 %; Eosinophils # (auto) 0.11 K/uL (0-0.5); Eosinophils % (auto) 1.5 %; Hematocrit (blood only) 26.1 % (37-47); Hemoglobin 8.9 g/dL (12.0-16.0); Immature Granulocytes # (auto) 0.03 K/uL (0.00-0.02); Immature Granulocytes % (auto) 0.4 %; Lymphocytes # (auto) 1.93 K/uL (1.2-3.4); Lymphocytes % (auto) 27.1 %; Mean Corpuscular Hemoglobin 29.8 pg (25-34); Mean Corpuscular Hgb Conc 34.1 g/dL (32-36); Mean Corpuscular Volume 87.3 fL (80-100); Mean Platelet Volume 8.8 fL (7.4-10.4); Monocytes # (auto) 0.51 K/uL (0.11-0.59); Monocytes % (auto) 7.2 %; Neutrophils % (auto) 63.4 %; Platelet Count 246 K/uL (130-400); RDW Coefficient of Variation 15.6 % (11.5-14.5); RDW Standard Deviation 49.8 fL (36.4-46.3); Red Blood Count 2.99 M/uL (4.2-5.4); White Blood Count 7.11 K/uL (4.8-10.8)
[2020-03-27 07:16] LABS: BUN Creatinine Ratio 18.1 (10-20); C Reactive Protein 0.55 mg/dl (0-0.29); Calcium 7.5 mg/dl (8.5-10.1); Creatinine Clr Calc Pharmacy 84.9 ml/min; Est GFR (Non-African American) 92.3; Potassium 3.7 mmol/L (3.5-5.1)
[2020-03-27] MEDS: ADVANCED PROBIOTIC 1250 MG CAPSULE PO SCH (08:15)
--- NOTE | 2020-03-27 09:32 | Hospitalist Progress Note ---
Date of Service March 27, 2020 Assessment & Plan (1) GI bleeding: Ms. Farfan is a 49 year old female with a history of Type 2 Diabetes Mellitus, Diverticulosis Coli, s/p Hemorrhoidectomy, and Gall Bladder Disease s/p Cholecystectomy who presents to [facility] ER with a GI Bleed, Acute Blood Loss Anemia, and CT Scan is suspicious for a Fang-Colitis. Additionally, she has an arthritis which flares up periodically. She thinks that she may have been diagnosed with rheumatoid arthritis -- and this could certainly be related to her current GI bleed. The patient started to have purple to dark red blood from her rectum about 3 days ago. Today she has noticed a greater quantity of bright red blood per rectum, and she became more concerned when she began to feel lightheaded and nauseated today. Her appetite up until today has been normal, she just did not feel like eating much this morning because she was nauseated. The patient denies any focal abdominal pain, fevers, or chills, or any diarrhea -- although her stools have not been fully formed ever since starting on Metformin but that's not new. She denies any vomiting or hematemesis. Patient denies any recent foreign travel, or eating any questionable foods. She denies any prior history of rectal bleeding with the exception of her external hemorrhoids which were surgically removed. She has not had any vaginal bleeding or any changes in her urinary patterns. She does not take blood thinners, but she does take melox icam occasionally. She recently took it for about a week straight. She denies any mid epigastric discomfort or irritation from taking this NSAID. She offers no other complaints. She denies any exertional chest pain, heaviness, tightness, pressure, or discomfort. She denies any shortness of breath rest, orthopnea, or PND. She denies any palpitations, syncope, or loss of consciousness. She has not had any symptoms concerning for coronavirus. -- Admit to Med-Surg floor. -- Transfused PRBC's as ordered in the ER. -- [facility]. -- Initially NPO. -- Will transition to a clear liquid diet and hold red dye. -- hemoglobin has been stable, will switch to full liquid in 03/28 -- Protonix 40 mg b.i.d.. -- If BM become bloody, will resume NPO. (2) Pancolitis: -- CT Scan was suggestive of a Pancolitis. -- will continue abx for 7 days (3) Chronic arthralgias of knees and hips: -- Patient thinks that she was diagnosed with Rheumatoid Arthritis. -- Family history of RA in her mother. (4) Type 2 diabetes mellitus: -- Hold Metformin. -- BSG checks AC and HS. -- Glycemic Pharmacy consult. Admission and Anticipated Discharge Date Admission Date: March 26, 2020 Subjective Patient reports feeling better. She states that she is hungry. She has no abdominal pain at this time. She has a small BM this AM with scant amount of blood. She wants to try a clear liquid diet. Review of Systems Review of Systems: All systems reviewed & are unremarkable except as noted in HPI & below Physical Exam Physical Exam: GENERAL: Patient in no acute distress. HEENT: Head is atraumatic, normocephalic. EOM's intact. Conjunctiva are pale. Facies symmetric. No perioral cyanosis. NECK: No JVD. Carotid upstrokes are + 2 bilaterally. No bruits are noted. Well healed surgical scar above the suprasternal notch. CHEST/LUNGS: Clear to auscultation throughout all lung feliz. No wheezes, rales, or crackles. CVS: S1 and S2 are regular obvious without murmurs, gallops, or rubs. PMI is nonpalpable. No lifts, heaves, or thrills. No abdominal aortic or renal bruits. ABDOMINAL EXAM: Bowel sounds are present. No masses, organomegaly, or tenderness to superficial or deep palpation. EXTREMITIES: No clubbing or cyanosis. No edema. Intact posterior tibial and radial pulses bilaterally. Left distal 3rd finger is absent at the DIP joint. NEUROLOGIC EXAM: Patient is awake, alert, and oriented. Pleasant and cooperative. Answers questions appropriately. Speech is clear. Normal movement in all 4 extremities. Results & Data Results & Data ([facility]) Vital Signs (Past 12 Hours) Vital Signs Temp Pulse Pulse Resp BP BP Pulse Ox 03/27/20 07:06 36.7 C 71 20 105/59 L 99 03/26/20 22:36 37 C 74 18 113/71 98 03/26/20 21:50 37.1 C 77 14 112/70 97 PG Care Time/CCT Total # of Minutes Spent Total Time Spent with Patient: Total time spent is greater than 50% in coordination of care (as documented) at patient's floor/unit and/or counseling patient: Coding Level of Care Code 98896 Subseq Hosp Care Lvl 3 Diagnoses GI bleeding K92.2 Pancolitis K51.00 Chronic arthralgias of knees and hips M25.551; M25.552; M25.561; M25.562; G89.29 Type 2 diabetes mellitus E11.9
--- NOTE | 2020-03-27 10:23 | Gastroenterology Progress Note ---
Date of Service March 27, 2020 Assessment & Plan (1) Rectal bleed: No signs of ongoing GI bleeding. Diff Dx with Diverticular vs infectious, less likely ishemia. Recs: Continue supportive care NPO after MN on Sunday night Colonoscopy with Dr. Colbert on Sunday Ok of liquid diet today and tomorrow Colon prep tomorrow marcie (2) Pancolitis: Admission and Anticipated Discharge Date Admission Date: March 26, 2020 Subjective patient is doing well, no signs of continued bleeding, no abdominal pain, sitting on bedside chair without complataints. Hb responded accordingly to tra nsfusion Physical Exam Constitutional: WD/WN, vitals as above Cardiovascular: RRR, no murmur, no edema Gastrointestinal (Abdomen): normal bowel sounds, soft, nontender, no hepatosplenomegaly Results & Data ([facility]) Vital Signs (Past 12 Hours) Vital Signs Temp Pulse Resp BP Pulse Ox 03/27/20 07:06 36.7 C 71 20 105/59 L 99 03/26/20 22:36 37 C 74 18 113/71 98
--- NOTE | 2020-03-27 13:48 | Pharmacy Report ---
Pharmacy Glycemic Short Note 2 - Date of Service March 27, 2020 - Glycemic Short BSG Results (Last 24 hours): 03/26/20 03/26/20 03/27/20 22:16 23:59 06:03 Glucose POC Glucose 120 H 119 H 121 H 03/27/20 03/27/20 06:24 11:53 Glucose 122 H POC Glucose 216 H OUTPATIENT ANTIDIABETIC REGIMEN: * metformin 1000 mg BID ASSESSMENT: * Ms Farfan is a 49 y/o F with a PMH of T2DM on 1 oral medication who presents with GI bleeding. Patient initially NPO with D51/2NS + 20KCL @125 mL/hr. * BSG this morning 122 mg/dL but at lunchtime was 216 mg/dL. Suspect may be due to dextrose in fluids. * Patient changed to clear liquid diet and fluids stopped. * Continue weight-based stress of 2-3 Novolog. * Lantus scale of 0-15 units ordered for this evening if BSGs continue to be above 140 mg/dL. PLAN FOR INPATIENT GLYCEMIC CONTROL: * Hold outpatient oral diabetes medications * Basal insulin * Lantus 0-15 units SQ HS (hold if BSG < 140 mg/dL; 10 units if BSG 140-180 mg/dL; 15 units if BSG greater than 180 mg/dL) * Bolus insulin * NovoLog per scale ACHS or Q6hrs while NPO * Goal Range: Low 110 mg/dL - High 140 mg/dL * Correction Factor: 30 mg/dL/unit * Nutritional / Prandial insulin per carb ratio of 1 unit per 10 grams CHO consumed PLAN FOR DISCHARGE: * TBD- HbA1C ordered
[2020-03-27 14:59] LABS: Hematocrit (blood only) 28.3 % (37-47); Hemoglobin 9.5 g/dL (12.0-16.0)
[2020-03-27] MEDS ORDERED: Nursing to Pharmacy Communication SCH (16:45)
[2020-03-27] MEDS ORDERED: INSULIN GLARGINE SOLOSTAR 100 UNITS/ML 3 ML PEN SC SCH (21:00)
[2020-03-28] MEDS: metroNIDAZOLE 500 MG/100 ML BAG IV SCH ×3 (03:43→18:20)
[2020-03-28 05:54] LABS: Basophils # (auto) 0.05 K/uL (0-0.2); Basophils % (auto) 0.7 %; Eosinophils # (auto) 0.18 K/uL (0-0.5); Eosinophils % (auto) 2.5 %; Hematocrit (blood only) 25.2 % (37-47); Hemoglobin 8.5 g/dL (12.0-16.0); Immature Granulocytes # (auto) 0.03 K/uL (0.00-0.02); Immature Granulocytes % (auto) 0.4 %; Lymphocytes # (auto) 2.14 K/uL (1.2-3.4); Lymphocytes % (auto) 29.6 %; Mean Corpuscular Hgb Conc 33.7 g/dL (32-36); Mean Platelet Volume 8.6 fL (7.4-10.4); Monocytes # (auto) 0.72 K/uL (0.11-0.59); Neutrophils % (auto) 56.8 %; Platelet Count 257 K/uL (130-400); RDW Coefficient of Variation 15.7 % (11.5-14.5); RDW Standard Deviation 50.3 fL (36.4-46.3); Red Blood Count 2.83 M/uL (4.2-5.4); White Blood Count 7.22 K/uL (4.8-10.8)
[2020-03-28] MEDS: CIPROFLOXACIN / D5W 400 MG/200 ML BAG IV SCH ×2 (06:21→18:20)
[2020-03-28 06:29] LABS: BUN Creatinine Ratio 9.1 (10-20); Calcium 7.9 mg/dl (8.5-10.1); Creatinine Clr Calc Pharmacy 69.2 ml/min; Est GFR (African American) 83.6; Est GFR (Non-African American) 72.1; Potassium 3.7 mmol/L (3.5-5.1)
[2020-03-28] MEDS: INSULIN ASPART 100 UNITS/ML 3 ML PEN SC SCH ×4 (08:45→20:57)
[2020-03-28] MEDS: ADVANCED PROBIOTIC 1250 MG CAPSULE PO SCH (10:46)
--- NOTE | 2020-03-28 10:50 | Hospitalist Progress Note ---
Date of Service March 28, 2020 Assessment & Plan (1) GI bleeding: Presumed lower GI bleeding. - Transfused 2 units of PRBCs on 03/26 - Consulted [facility] -> Plan for colonoscopy tomorrow. - Presently hgb down by 1 mg/dL today to 8.5. - Will transfuse IV iron x 2 doses. Still with dark BMs. (2) Pancolitis: CT a/p on 03/26 was suggestive of a pancolitis; infectious vs. inflammatory. - Stool studies (culture) pending. - Will continue abx for 7 days -> End date: 04/02/2020 (3) Chronic arthralgias of knees and hips: Patient believes that she was diagnosed with rheumatoid arthritis with family history of RA in her mother. - Monitor - Symptomatic treatment (4) Type 2 diabetes mellitus: A1c is pending in our system. - Hold metformin. - BSG checks AC and HS. - Glycemic pharmacy consulted - Blood sugars all within desired range in last 24 hours. (5) DVT prophylaxis: SCDs - Low DVT risk per admission calculator Admission and Anticipated Discharge Date Admission Date: March 26, 2020 Subjective Another episode of darker stool this morning, but no systemic symptoms such as lightheadedness, dizziness. Reports no fevers/chills, chest pain, shortness of breath, abdominal pain, nausea, or vomiting. Physical Exam Constitutional: WD/WN, vitals as above Eyes: EOM intact bilaterally; no conjunctival abnormality ENMT: external ear and nose normal, oropharynx normal Neck: trachea midline, no thyromegaly normal visual inspection Respiratory: normal respiratory effort, lungs clear to auscultation no respiratory distress Cardiovascular: RRR, no murmur, no edema Gastrointestinal (Abdomen): Inspection/Auscultation: abdomen normal to inspection; abdomen not distended Musculoskeletal: no cyanosis or clubbing, extremities motor strength 5/5 Skin: no rashes, warm and dry Neurologic: moves all extremities and awake Psychiatric: Orientation: alert, oriented to person and cooperative Results & Data Results & Data ([facility]) Vital Signs (Past 12 Hours) Vital Signs Temp Pulse Resp BP Pulse Ox 03/28/20 08:08 36.7 C 71 20 106/75 98 03/27/20 22:44 36.5 C 76 16 115/76 99 PG Care Time/CCT Total # of Minutes Spent Total Time Spent with Patient: Total time spent is greater than 50% in coordination of care (as documented) at patient's floor/unit and/or counseling patient: Coding Level of Care Code 51705 Subseq Hosp Care Lvl 2 Diagnoses GI bleeding K92.2 Pancolitis K51.00 Chronic arthralgias of knees and hips M25.551; M25.552; M25.561; M25.562; G89.29 Type 2 diabetes mellitus E11.9 DVT prophylaxis Z29.9
--- NOTE | 2020-03-28 11:31 | Gastroenterology Progress Note ---
Date of Service March 28, 2020 Assessment & Plan (1) Rectal bleed: No signs of ongoing GI bleeding. Diff Dx with Diverticular vs infectious, less likely ishemia. Recs: Continue supportive care NPO after MN on tonight Colonoscopy with Dr. Colbert on Sunday Ok of liquid diet today Colon prep this marcie (2) Pancolitis: Admission and Anticipated Discharge Date Admission Date: March 26, 2020 Subjective Feels well, no other further bleeding. Physical Exam Constitutional: WD/WN, vitals as above Cardiovascular: RRR, no murmur, no edema Gastrointestinal (Abdomen): normal bowel sounds, soft, nontender, no hepatosplenomegaly Results & Data ([facility]) Vital Signs (Past 12 Hours) Vital Signs Temp Pulse Resp BP Pulse Ox 03/28/20 08:08 36.7 C 71 20 106/75 98
[2020-03-28] MEDS ORDERED: SCOPOLAMINE 1 MG TDSY TD PRN (12:36)
[2020-03-28] MEDS: IRON SUCROSE 300 MG in SODIUM CHLORIDE 0.9% 250 ML IV SCH (12:46)
[2020-03-28] MEDS: CHECK SCOPOLAMINE PATCH PLACEMENT SCH (15:34)
[2020-03-28] MEDS: POLYETHYLENE (MIRALAX) 17 GM PACK PO SCH (17:27)
[2020-03-29] MEDS: metroNIDAZOLE 500 MG/100 ML BAG IV SCH ×2 (02:37→12:28)
[2020-03-29] MEDS: CHECK SCOPOLAMINE PATCH PLACEMENT SCH ×2 (02:38→08:42)
[2020-03-29] MEDS ORDERED: Nursing to Pharmacy Communication SCH (04:00)
[2020-03-29 06:08] LABS: Estimated Average Glucose 123 mg/dl; Hemoglobin A1C 5.9 % (4.5-5.6)
[2020-03-29] MEDS: POLYETHYLENE (MIRALAX) 17 GM PACK PO SCH (06:09)
[2020-03-29] MEDS: CIPROFLOXACIN / D5W 400 MG/200 ML BAG IV SCH (06:13)
[2020-03-29 06:33] LABS: Hematocrit (blood only) 24.4 % (37-47); Hemoglobin 8.2 g/dL (12.0-16.0); Mean Corpuscular Hemoglobin 30.1 pg (25-34); Mean Corpuscular Hgb Conc 33.6 g/dL (32-36); Mean Corpuscular Volume 89.7 fL (80-100); Mean Platelet Volume 8.8 fL (7.4-10.4); Nucleated RBC # (auto) 0.02 K/uL (0-0); Nucleated RBC % (auto) 0.3 %; Platelet Count 273 K/uL (130-400); RDW Coefficient of Variation 15.7 % (11.5-14.5); Red Blood Count 2.72 M/uL (4.2-5.4); White Blood Count 6.24 K/uL (4.8-10.8)
[2020-03-29] MEDS: INSULIN ASPART 100 UNITS/ML 3 ML PEN SC SCH ×2 (06:38→13:13)
[2020-03-29 07:07] LABS: BUN Creatinine Ratio 7.4 (10-20); Calcium 8.5 mg/dl (8.5-10.1); Creatinine Clr Calc Pharmacy 62.4 ml/min; Est GFR (African American) 73.8; Est GFR (Non-African American) 63.6; Potassium 3.7 mmol/L (3.5-5.1)
--- NOTE | 2020-03-29 08:52 | Gastroenterology Progress Note ---
Date of Service March 29, 2020 Assessment & Plan (1) Rectal bleed: (2) Pancolitis: Pt is a 49 y/o female followed for painless rectal bleeding, and CT evidence of pancolitis. Stool studies to r/o infections pending. Blood ct stable over weekend. - NPO for colonoscopy by Dr. Colbert today to r/o IBD, infectious, ischemic etiology - Continue antibx for now - Monitor blood ct and transfuse prn - GI to give further recs after colonoscopy completed Admission and Anticipated Discharge Date Admission Date: March 26, 2020 Supervising Physician Co-Signing Physician Notes I saw and evaluated the patient. She presents for her colonoscopy today due to persistent hematochezia. Given the need for blood transfusion I think it may be prudent to proceed with upper endoscopy just to ensure that there is no upper gastrointestinal source of bleeding. Subjective Pt completed bowel prep for colonoscopy today. She reports still passage for blood per rectum. Denies abd pain, n/v, fever, chills overnight. Stool cx, O&P pending Review of Systems Review of Systems: All systems reviewed & are unremarkable except as noted in HPI & below Physical Exam Constitutional: WD/WN, vitals as above well groomed, cooperative and comfortable Eyes: PERRL, conjunctivae normal, anicteric sclerae ENMT: external ear and nose normal, oropharynx normal Respiratory: normal respiratory effort, lungs clear to auscultation Cardiovascular: RRR, no murmur, no edema Gastrointestinal (Abdomen): normal bowel sounds, soft, nontender, no hepatosplenomegaly Skin: no rashes, warm and dry no jaundice Psychiatric: A+Ox3, euthymic affect Lymphatic: no lymphedema Results & Data ([facility]) Vital Signs (Past 12 Hours) Vital Signs Temp Pulse Resp BP Pulse Ox 03/29/20 07:07 36.9 C 59 L 20 101/67 97 03/28/20 22:17 37.1 C 66 14 102/61 97
[2020-03-29] MEDS: ADVANCED PROBIOTIC 1250 MG CAPSULE PO SCH (08:53)
--- NOTE | 2020-03-29 09:03 | Hospitalist Progress Note ---
Date of Service March 29, 2020 Assessment & Plan (1) GI bleeding: Presumed lower GI bleeding. - Transfused 2 units of PRBCs on 03/26 - Consulted [facility] -> Plan for colonoscopy 03/29 - Presently hgb down 8.2 - did transfuse IV iron x 2 doses. Still with dark BMs. (2) Pancolitis: CT a/p on 03/26 was suggestive of a pancolitis; infectious vs. inflammatory. - Stool studies negative for salmonella, shigella and Campylobacter - Will continue cipro/flagyl for 7 days -> End date: 04/02/2020 (3) Chronic arthralgias of knees and hips: Patient believes that she was diagnosed with rheumatoid arthritis with family history of RA in her mother. - Monitor - Symptomatic treatment (4) Type 2 diabetes mellitus: A1c is 5.9 - Holding metformin. - BSG checks AC and HS. - Glycemic pharmacy consulted - Blood sugars all within desired range in last 24 hours. (5) DVT prophylaxis: SCDs - Low DVT risk per admission calculator Admission and Anticipated Discharge Date Admission Date: March 26, 2020 Results & Data Results & Data ([facility]) Vital Signs (Past 12 Hours) Vital Signs Temp Pulse Resp BP Pulse Ox 03/29/20 07:07 98.4 F 59 L 20 101/67 97 03/28/20 22:17 98.8 F 66 14 102/61 97 PG Care Time/CCT Total # of Minutes Spent Total Time Spent with Patient: Total time spent is greater than 50% in coordination of care (as documented) at patient's floor/unit and/or counseling patient: Coding Diagnoses GI bleeding K92.2 Pancolitis K51.00 Chronic arthralgias of knees and hips M25.551; M25.552; M25.561; M25.562; G89.29 Type 2 diabetes mellitus E11.9 DVT prophylaxis Z29.9
--- NOTE | 2020-03-29 09:20 | Anesthesiology Consultation ---
Date of Service March 29, 2020 Assessment & Plan Chart Review Chart Review: Acceptable Risk for Surgery Consults Requested none Proposed Anesthesia Risk / Benefits Reviewed With: PT / POA / Parent / Guardian, Accepts Plan and Informed Consent Obtained History Surgery Operation Date: 03/29/20 16:45 Proposed Procedures p Colonoscopy Dr Filemon Colbert, DO Height/Weight Height: 5 ft 4 in Weight: 69.4 kg Allergies Allergy/AdvReac Type Severity Reaction Status Date / Time meperidine Allergy Mild A PAIN MED Verified 03/26/20 10:48 STARTS WITH A "D", NOT DEMEROL OR DARVOCET--KNEE hydromorphone Allergy Unknown A PAIN MED Verified 03/26/20 10:48 THAT STARTS WITH "D", NOT DEMEROL OR DARVOCET DETERGENTS Allergy Unknown RASH TO Uncoded 03/26/20 10:48 IVORY SOAP WOOL Allergy Unknown RASH Uncoded 03/26/20 10:48 Medications Home Medications Medication Instructions Recorded Confirmed Last Taken Lactobacillus reuteri [Probiotica] 1 cell PO DAILY 03/26/20 03/26/20 Unknown docusate sodium [Stool Softener] 100 mg PO DAILY 03/26/20 03/26/20 Unknown meloxicam 15 mg PO DAILY 03/26/20 03/26/20 Unknown metformin 1,000 mg PO BID 03/26/20 03/26/20 Unknown Active Medications Generic Name Dose Route Start Last Admin Trade Name Freq PRN Reason Stop Dose Admin Ciprofloxacin 400 mg in 200 mls @ 100 mls/hr 03/26/20 19:00 03/29/20 07:45 Cipro / D5w IV 04/05/20 18:59 100 mls/hr Q12H BINU Infusion Protocol Metronidazole 500 mg in 100 mls @ 100 mls/hr 03/26/20 19:00 03/29/20 03:37 Flagyl IV 04/05/20 18:59 Infused Q8H BINU Infusion Protocol Iron Sucrose 300 mg/ Sodium 265 mls @ 176.667 mls/hr 03/28/20 12:00 03/28/20 14:21 Chloride IV 03/29/20 10:29 Infused DAILY BINU Infusion Insulin Aspart 0 units 03/29/20 06:00 03/29/20 06:38 Insulin Aspart 100 Units/Ml 3 Ml Pen SC 04/28/20 05:59 Not Given Q6 BINU Lactobacillus Acidoph/Casei/Rhamnos 2 cap 03/27/20 09:00 03/29/20 08:53 Advanced Probiotic 1250 Mg Capsule PO 04/26/20 08:59 Not Given DAILY BINU Miscellaneous 1 ea 03/28/20 16:00 03/29/20 08:42 Check Scopolamine Patch Placement N/A 04/27/20 15:59 1 ea QS BINU Administration Miscellaneous 1 ea 03/28/20 12:45 03/28/20 15:34 Remove Transderm-Scop Patch N/A 04/27/20 12:44 Not Given Q72H BINU Scopolamine 1.5 mg 03/28/20 12:36 03/29/20 08:31 Scopolamine 1.5 Mg Tdsy TD 04/27/20 12:35 1.5 mg ONE PRN Administration Anesthesia/nausea NPO Date Last Intake of Fluids: 03/29/20 Time Last Intake of Fluids: 06:20 Date Last Intake of Solids: 03/25/20 Past Medical History Medical History Abnormal uterine bleeding Abnormal uterine bleeding Anemia (06/13/13) Menometrorrhagia (06/13/13) Ovarian cyst (06/13/13) Pelvic mass Pelvic mass in female Strep pharyngitis Strep pharyngitis Type 2 diabetes mellitus Past Family History Family History Mother Rheumatoid arthritis Past Surgical History Surgical History History of cervical spinal surgery History of hemorrhoidectomy Hx of cholecystectomy Social History Smoking Status: Smoker, status unknown tobacco type: cigarettes Smoking cigarettes per day: 1 Pack every 2-3 days Do You Dip or Chew Tobacco: No Smoking End Date: 2 days ago Hx Alcohol Use: No Hx Substance Use: No Physical Exam Vital Signs Last Vital Signs Temp 36.5 C 03/29/20 08:58 Pulse 59 L 03/29/20 08:58 Resp 16 03/29/20 08:58 BP 128/72 03/29/20 08:58 Pulse Ox 100 03/29/20 08:58 Testing Laboratory Results 03/29/20 06:05 02/22/21 06:05 PT 10.3 Seconds (9.0-12.0) 03/26/20 09:45 INR 1.0 (0.9-1.1) 03/26/20 09:45 APTT 21.0 Seconds (21.0-31.0) 03/26/20 09:45 Hemoglobin A1c 5.9 % (4.5-5.6) H 03/28/20 05:34 Blood Type O Positive 03/26/20 09:45 Antibody Screen NEGATIVE 03/26/20 09:45 03/27/20 Unknown Escherichia coli Shiga Toxins Test - Preliminary Stool Stool Culture - Preliminary No Salmonella isolated to date, No Shigella isolated to date, No Campylobacter jejuni isolated to date. 03/29/20 06:02 POC Glucose 114 H
--- NOTE | 2020-03-29 09:56 | Communication Note ---
Date of Service: March 29, 2020 The patient underwent upper endoscopy and colonoscopy this morning. Findings Small hiatal hernia otherwise unremarkable upper digestive tract Colonoscopy with numerous diverticuli, no active bleeding seen, internal and external hemorrhoids, poor bowel preparation Recommendations If bleeding recurs would suggest a tagged RBC study Patient should have a outpatient colonoscopy as scheduled as today's examination was notable for poor preparation and polyps could have been missed Consider iron supplementation for 6 to 8 weeks Advance diet as tolerated Please call with any questions or concerns
[2020-03-29] MEDS ORDERED: LIDOCAINE HCL 2% 2 ML VIAL/AMP(20MG/ML) INFIL ONE (10:04)
[2020-03-29] MEDS ORDERED: PROPOFOL IV EMULSION 10 MG/ML 20 ML VIAL IV ONE (10:04)
--- NOTE | 2020-03-29 10:10 | GI REPORT ---
Patient Name: Ese Farfan Procedure Date: 03/29/2020 10:06 AM Date of : 1970 Admit Type: Inpatient Age: 49 Gender: Female Attending MD: Leonard Colbert DO Procedure: Upper GI endoscopy Providers: Leonard Colbert DO Referring MD: Addy Cason Indications: Hematochezia Medicines: Monitored Anesthesia Care Complications: No immediate complications. Estimated blood loss: Minimal. Estimated Blood Loss: Estimated blood loss was minimal. Procedure: Pre-Anesthesia Assessment: - Prior to the procedure, a History and Physical was performed, and patient medications, allergies and sensitivities were reviewed. The patient's tolerance of previous anesthesia was reviewed. - The risks and benefits of the procedure and the sedation options and risks were discussed with the patient. All questions were answered and informed consent was obtained. - Patient identification and proposed procedure were verified prior to the procedure by the physician, the nurse and the health and human performance professor. The procedure was verified in the procedure room. - Pre-procedure physical examination revealed no contraindications to sedation. - ASA Grade Assessment: II - A patient with mild systemic disease. - After reviewing the risks and benefits, the patient was deemed in satisfactory condition to undergo the procedure. - The anesthesia plan was to use monitored anesthesia care (MAC). - Immediately prior to administration of medications, the patient was re-assessed for adequacy to receive sedatives. - The heart rate, respiratory rate, oxygen saturations, blood pressure, adequacy of pulmonary ventilation, and response to care were monitored throughout the procedure. - The physical status of the patient was re-assessed after the procedure. After obtaining informed consent, the endoscope was passed under direct vision. Throughout the procedure, the patient's blood pressure, pulse, and oxygen saturations were monitored continuously. The Colonoscope was introduced through the mouth, and advanced to the third part of duodenum. The upper GI endoscopy was accomplished without difficulty. The patient tolerated the procedure well. Findings: The examined esophagus was normal. A medium-sized hiatal hernia was found. The proximal extent of the gastric folds (end of tubular esophagus) was 32 cm from the incisors. The hiatal narrowing was 35 cm from the incisors. The Z-line was 32 cm from the incisors. The gastric fundus, gastric body, incisura and gastric antrum were normal. The examined duodenum was normal. Impression: - Normal esophagus. - Medium-sized hiatal hernia. - Normal gastric fundus, gastric body, incisura and antrum. - Normal examined duodenum. - No specimens collected. Recommendation: - Perform a colonoscopy. Leonard Colbert D.O. Leonard Colbert, 03/29/2020 10:09:57 AM This report has been signed electronically. Note Initiated On: 03/29/2020 10:06 AM Number of Addenda: 0 I attest to the content of the Intraoperative Record and orders documented therein, exceptions below {[id number]}
--- NOTE | 2020-03-29 10:13 | GI REPORT ---
Patient Name: Ese Farfan Procedure Date: 03/29/2020 9:00 AM Date of : 1970 Admit Type: Inpatient Age: 49 Gender: Female Attending MD: Leonard Colbert DO Procedure: Colonoscopy Providers: Leonard Colbert DO Referring MD: Addy Cason Indications: Hematochezia Medicines: Monitored Anesthesia Care Complications: No immediate complications. Estimated blood loss: Minimal. Estimated Blood Loss: Estimated blood loss was minimal. Procedure: Pre-Anesthesia Assessment: - Prior to the procedure, a History and Physical was performed, and patient medications, allergies and sensitivities were reviewed. The patient's tolerance of previous anesthesia was reviewed. - The risks and benefits of the procedure and the sedation options and risks were discussed with the patient. All questions were answered and informed consent was obtained. - Patient identification and proposed procedure were verified prior to the procedure by the physician, the nurse and the manager helpdesk. The procedure was verified in the procedure room. - Pre-procedure physical examination revealed no contraindications to sedation. - ASA Grade Assessment: II - A patient with mild systemic disease. - After reviewing the risks and benefits, the patient was deemed in satisfactory condition to undergo the procedure. - The anesthesia plan was to use monitored anesthesia care (MAC). - Immediately prior to administration of medications, the patient was re-assessed for adequacy to receive sedatives. - The heart rate, respiratory rate, oxygen saturations, blood pressure, adequacy of pulmonary ventilation, and response to care were monitored throughout the procedure. - The physical status of the patient was re-assessed after the procedure. After I obtained informed consent, the scope was passed under direct vision. Throughout the procedure, the patient's blood pressure, pulse, and oxygen saturations were monitored continuously. The Colonoscope was introduced through the anus and advanced to the cecum, identified by appendiceal orifice and ileocecal valve. The colonoscopy was performed without difficulty. The patient tolerated the procedure well. The quality of the bowel preparation was poor. Findings: The digital rectal exam findings include non-thrombosed external hemorrhoids. Pertinent negatives include normal sphincter tone. Multiple small and large-mouthed diverticula were found in the sigmoid colon, descending colon and ascending colon. There was no evidence of diverticular bleeding. Internal hemorrhoids were found during retroflexion. The hemorrhoids were moderate. The exam was otherwise without abnormality. Impression: - Preparation of the colon was poor. - Non-thrombosed external hemorrhoids found on digital rectal exam. - Moderate diverticulosis in the sigmoid colon, in the descending colon and in the ascending colon. There was no evidence of diverticular bleeding. - Internal hemorrhoids. - The examination was otherwise normal. - No specimens collected. Recommendation: - Advance diet as tolerated today. - Repeat colonoscopy as previously scheduled because the bowel preparation was poor. -Hematochezia likely related to a diverticular hemorrhage. Would recommend Colace 200 mg/day and MiraLAX 17 g/day in addition to a daily fiber supplement. Patient should be discharged on iron for approximately 6 to 8 weeks to help replete iron stores please call with any questions or concerns Leonard Colbert D.O. Leonard Colbert, 03/29/2020 10:13:18 AM This report has been signed electronically. Note Initiated On: 03/29/2020 9:00 AM Number of Addenda: 0 I attest to the content of the Intraoperative Record and orders documented therein, exceptions below {[id number]}
--- NOTE | 2020-03-29 10:14 | Anesthesiology Progress Note ---
Date of Service March 29, 2020 Anesthesia Post Procedure Vital Signs Vital Signs: Temp Pulse Resp BP Pulse Ox 03/29/20 10:00 78 16 96/57 L 99 03/29/20 08:58 36.5 C 59 L 16 128/72 100 03/29/20 07:07 36.9 C 59 L 20 101/67 97 03/28/20 22:17 37.1 C 66 14 102/61 97 03/28/20 15:14 36.7 C 67 20 99/64 L 97 03/28/20 14:27 37.0 C 61 16 111/68 98 03/28/20 12:51 37.1 C 78 16 106/71 98 Transfer of Care Handoff Completed per policy Notes Mental Status: alert / awake / arousable and participated in evaluation Patient Amnestic to Procedure: Yes Nausea / Vomiting: adequately controlled Pain: adequately controlled Airway Patency, RR, SpO2: stable & adequate BP & HR: stable & adequate Hydration State: stable & adequate Anesthetic Complications: no major complications apparent
[2020-03-29] MEDS: IRON SUCROSE 300 MG in SODIUM CHLORIDE 0.9% 250 ML IV SCH (10:48)
--- NOTE | 2020-03-29 10:51 | Pharmacy Report ---
Pharmacy Glycemic Short Note 2 - Date of Service March 29, 2020 - Glycemic Short BSG Results (Last 24 hours): 03/28/20 03/28/20 03/28/20 11:51 17:21 20:32 Glucose POC Glucose 120 H 99 128 H 03/29/20 03/29/20 06:02 06:05 Glucose 104 H POC Glucose 114 H OUTPATIENT ANTIDIABETIC REGIMEN: * metformin 1000 mg BID ASSESSMENT: 03/29/20 * BSGs yesterday were [phone] mg/dL. Patient received no insulin. * Patient NPO for colonoscopy today. Continue current regimen. * Consider addition of metformin when 24 hours post-op. 03/27/20 * Ms Farfan is a 49 y/o F with a PMH of T2DM on 1 oral medication who presents with GI bleeding. Patient initially NPO with D51/2NS + 20KCL @125 mL/hr. * BSG this morning 122 mg/dL but at lunchtime was 216 mg/dL. Suspect may be due to dextrose in fluids. * Patient changed to clear liquid diet and fluids stopped. * Continue weight-based stress of 2-3 Novolog. * Lantus scale of 0-15 units ordered for this evening if BSGs continue to be above 140 mg/dL. PLAN FOR INPATIENT GLYCEMIC CONTROL: * Hold outpatient oral diabetes medications * Basal insulin * hold * Bolus insulin * NovoLog per scale ACHS or Q6hrs while NPO * Goal Range: Low 110 mg/dL - High 140 mg/dL * Correction Factor: 30 mg/dL/unit * Nutritional / Prandial insulin per carb ratio of 1 unit per -- grams CHO consumed PLAN FOR DISCHARGE: * HbA1C indicates excellent control (goal HbA1C < 6.5% whereas current HbA1C is 5.9%) * Continue outpatient regimen.
--- NOTE | 2020-03-29 18:54 | Discharge Summary ---
Date of Service March 29, 2020 Admission HPI Per Admitting Provider Ms. Farfan is a 49 year old female with a history of Type 2 Diabetes Mellitus, Diverticulosis Coli, s/p Hemorrhoidectomy, and Gall Bladder Disease s/p Cholecystectomy who presents to [facility] ER complaining of "blood in stool". The patient states that 3 days ago she started to have purple to dark red blood from her rectum. Patient states that today there is a greater quantity of bright red blood per rectum. She became more concerned when she began to feel dizzy/lightheaded and nauseated today. Her appetite up until today has been normal, she just did not feel like eating much this morning because she was n auseated. She was apparently seen at [facility] on 03/25/2020 and was diagnosed with what she believes was diverticulitis. The patient however denies any focal abdominal pain, fevers, or chills, or any diarrhea -- although her stools have not been fully formed ever since starting on Metformin but that's not new. She denies any vomiting or hematemesis. Patient denies any recent foreign travel, or eating any questionable foods. She denies any prior history of rectal bleeding with the exception of her external hemorrhoids which were surgically removed. She has not had any vaginal bleeding or any changes in her urinary patterns. She does not take blood thinners, but she does take meloxicam occasionally. She recently took it for about a week straight. She denies any mid epigastric discomfort or irritation from taking this NSAID. She offers no other complaints. She denies any exertional chest pain, heaviness, tightness, pressure, or discomfort. She denies any shortness of breath rest, orthopnea, or PND. She denies any palpitations, syncope, or loss of consciousness. Patient has never had a colonoscopy although she is scheduled for a screening colonoscopy in approximately 1 month. Interestingly, patient has been evaluated by Rheumatology in the past. She has an arthritis which flares up periodically. She thinks that she may have been diagnosed with rheumatoid arthritis. She has a family history of rheumatoid arthritis in her mother. Principal Diagnosis lower gi bleed presumed iron deficiency anemia Discharge Exam The patient appeared slightly pale Vital signs as documented. Lungs are clear to auscultation and appear unlabored Cardiac exam, Rhythm is regular.. No murmurs, rubs or gallops. Abdominal exam reveals normal bowel sounds, soft non tender, no masses Extremities are nonedematous and both pedal pulses are normal. Neurologic exam is alert and oriented, no focal loss of strength or sensation Skin is without bruises or rashes Psychologically is without concerns for anxiety or depression. Discharge Data Allergies Allergy/AdvReac Type Severity Reaction Status Date / Time meperidine Allergy Mild A PAIN MED Verified 03/26/20 10:48 STARTS WITH A "D", NOT DEMEROL OR DARVOCET--KNEE hydromorphone Allergy Unknown A PAIN MED Verified 03/26/20 10:48 THAT STARTS WITH "D", NOT DEMEROL OR DARVOCET DETERGENTS Allergy Unknown RASH TO Uncoded 03/26/20 10:48 IVORY SOAP WOOL Allergy Unknown RASH Uncoded 03/26/20 10:48 Consultations 03/26/20 11:54 ED Decision to Admit Stat 03/26/20 16:15 Consult Gastroenterology Routine Procedures Performed Operation Date: 03/29/20 16:45 Actual Procedures p Esophagogastroduodenoscopy - Leonard Colbert DO s Colonoscopy - Leonard Colbert DO Ordered Studies 03/26/20 09:23 CT abd pelvis IV con only Stat Hospital Course (1) GI bleeding: Presumed lower GI bleeding. - Transfused 2 units of PRBCs on 03/26 - did transfuse IV iron x 2 doses. Still with dark BMs. EGD performed 04/26 shows hiatal hernia no mucosal changes consistent with bleeding source, colonoscopy showed internal hemorrhoids and diverticulosis without source of active bleeding recommendations were to have the patient on a fiber laxative-based diet as her prep was inconsistent with GI follow-up in the future consider repeat colonoscopy if anemia persists (2) Pancolitis: CT a/p on 03/26 was suggestive of a pancolitis; infectious vs. inflammatory. - Stool studies negative for salmonella, shigella and Campylobacter -Since no source of infection was seen antibiotics not be continued at time of discharge (3) Chronic arthralgias of knees and hips: Patient believes that she was diagnosed with rheumatoid arthritis with family history of RA in her mother. - Symptomatic treatment (4) Type 2 diabetes mellitus: A1c is 5.9 Resume as outpatient metformin. -Continue outpatient management as her A1c is in a very acceptable range Total Time Total Time Spent Total Time Spent (In Minutes): It required greater than 30 minutes to prepare this patient for discharge Discharge Plan Discharge Items Patient Disposition: Home - Self-Care Reason For Visit: GI BLEED, ACUTE BLOOD LOSS ANEMIA Discharge Diagnosis: iron deficiency anemia hiatal hernia diverticulosis moderate internal hemorrhoids Condition on Discharge: Good Activity: Resume your previous activity Non-emergency contact: Primary Care Provider Call non-emergency contact if: you have any medication questions and your symptoms worsen Follow-up/Referrals: PCP,NO [Primary Care Provider] - (Edward is PCP-Matt per patient.) Diet: Regular Addtl Attending Provider Instructions: good hydration and nurtirion consider a pre marilyn vitamin for a few weeks (4-6) after discharge, if not able then take a twice daily iron supplement you may restart your metformin tonight gastroenterology has recommended colace fiber and miralax for the next 4-6 weeks, if the colace, fiber and miralax are not covered by insurance ask the phramacist to see if over the counter versions are more cost effective please follow up with [facility] gastroenterology as you may benefit from additional colonoscopes in the future Pending Studies at Discharge: No Stand-Alone Forms: [facility], Smoking Cessation Medications and DC Order Prescriptions: New psyllium husk [Fiber-Caps (psyllium husk)] 0.52 gram capsule 0.52 g PO DAILY Qty: 30 RF: 3 polyethylene glycol 3350 [ClearLax] 17 gram powder in packet 17 g PO DAILY 4 Days Qty: 30 RF: 0 Continued meloxicam 15 mg tablet 15 mg PO DAILY RF: 0 metformin 500 mg tablet extended release 24 hr 1,000 mg PO BID RF: 0 Lactobacillus reuteri 100 million cell Tablet,Chewable 1 cell PO DAILY RF: 0 Changed docusate sodium [Stool Softener] 100 mg Capsule 200 mg PO DAILY Qty: 60 RF: 2 Discharge Orders: Discharge Order (Routine); Ordered 03/29/20 Ordered By: Addy Hale/Other Patient Handouts: Anemia, Anatomy of the Digestive System, How the Colon Works Admission Data Admit Date/Time: 03/26/20 14:40 Attending Provider: Addy Cason Admit Provider: Magnus Dorantes Primary Care Provider: PCP,NO Other Providers: Leonard Colbert ; Jg Lucio Other Interventions: Discharge Summary Assessment (RN) Last Done: 03/29/20 15:12 Coding Level of Care Code D/C Day Management >30 mins Diagnoses GI bleeding K92.2 Pancolitis K51.00 Chronic arthralgias of knees and hips M25.551; M25.552; M25.561; M25.562; G89.29 Type 2 diabetes mellitus E11.9
== END 2020-03-29 15:29 | disposition home or self-care (01) | DRG 385 ==
LOC: ED 09:01 → SUATTDRO 14:40 → 3W 14:40